=== PATIENT | female | born 1990 | race Caucasian/White ===

== ENCOUNTER 2020-04-01 09:48 | Outpatient (REF) | payer MEDICAID, SELFPAY ==
--- NOTE | 2020-04-01 09:15 | PAPFT_PTH ---
PATIENT: HA AUGUST LOC: [facility] U#:[id number] AGE/SX: 30/F ROOM: RE04/01/[address]: SIMEON Benitez : 1990 BED: DIS: 04/01/2020 SPEC #: [id number] RECD: 04/01/20 12:40 STATUS: DIONISIO REQ #: [id number] LETY: 04/01/20 09:[address]: Noreen Encarnacion DEPT: [facility] Cytology RECD BY: Margoth Page Tissues: 1 - CX/ENDOCX FOR PAP SMEARS Procedures: PAP THIN PREP/[facility] Screening HPV DNA PROBE Comments: [id number] (CHLAMYDIA/GC)
[2020-04-04 15:32] LABS: Chlamydia Result Negative (Negative); GC Result Negative (Negative)
== END 2020-04-01 10:08 ==
LOC: LBN 09:48
PROVIDERS: PCP Nurse Practitioner Family; Visit Provider Nurse Practitioner Family
DX: Z12.4 Encounter for screening for malignant neoplasm of cervix (principal); Z11.51 Encounter for screening for human papillomavirus (HPV); Z11.3 Encounter for screening for infections with a predominantly sexual mode of transmission
CPT/HCPCS: 87491; 87591; 88142; 87624